=== PATIENT | female | born 1945 | race Caucasian/White ===

== ENCOUNTER 2017-08-20 03:47 | Outpatient (CLI) | payer MEDICARE, OTHER ==
[~2017-08-20 03:47] MED LIST: ALB0.5UD NEB; ASPI-974 PO; CLOP75TA15 PO; FAMO-129 PO; HYDR-565 PO; HYDR12.5 PO; IRBE150T27 PO; LOVA40TA2 PO; SERT25TA PO; TOPI25TA15 PO
== END 2017-08-20 23:59 | disposition home or self-care (01) ==
LOC: DIABETIC 03:47
PROVIDERS: ATTEND Family Medicine
DX: E66.9 Obesity, unspecified (principal); J44.9 Chronic obstructive pulmonary disease, unspecified; I10 Essential (primary) hypertension; Z71.3 Dietary counseling and surveillance
CPT/HCPCS: 97802

== ENCOUNTER 2023-10-14 11:05 | Emergency (ER) | payer BC, MEDICARE ==
[~2023-10-14] VITALS: Ht 154.9 cm; Wt 101.7 kg
[~2023-10-14 11:05] MED LIST changes: +AMLO5TAB4 PO; -FAMO-129 PO; +FLUT1BLS13 INH; -HYDR-565 PO; -HYDR12.5 PO; -IRBE150T27 PO; +IRBE150T34 PO; +KEN0.1O TOP; -LOVA40TA2 PO; +METO50TA17 PO; +ROSU40TA PO; -TOPI25TA15 PO
[2023-10-14 12:19] VITALS: BP 137/56; PULSE 65; TEMP 98.4; O2SAT 97
[2023-10-14 13:41] VITALS: RESP 16
[2023-10-14 13:47] LABS: BASOPHILS % (AUTO) 0.3 % (0-1); EOSINOPHILS # (AUTO) 0.3 X10'3 (0-0.9); EOSINOPHILS % (AUTO) 3.1 % (0-6); HEMATOCRIT 41.1 % (35.0-45.0); HEMOGLOBIN 13.5 g/dl (12.0-16.0); LYMPHOCYTES % (AUTO) 11.2 % (21-51); MEAN CORPUSCULAR HEMOGLOBIN 28.7 PG (27.0-31.0); MEAN CORPUSCULAR HGB CONC 32.8 g/dL (33.0-36.5); MEAN CORPUSCULAR VOLUME 87.6 FL (78-98); MEAN PLATELET VOLUME 9.5 FL (7.4-10.4); MONOCYTES # (AUTO) 0.4 X10'3 (0-0.9); MONOCYTES % (AUTO) 4.4 % (2-12); NEUTROPHILS # (AUTO) 7.1 X10'3 (1.8-7.7); PLATELET COUNT 161 X10'3 (140-440); RED BLOOD COUNT 4.69 X10'6 (4.20-5.60); RED CELL DISTRIBUTION WIDTH 14.7 % (11.5-14.5); WHITE BLOOD COUNT 8.7 X10'3 (4.5-11.0)
[2023-10-14 13:52] LABS: ALBUMIN 3.5 G/DL (3.4-5.0); ANION GAP 10 (8-16); BLOOD UREA NITROGEN 31 MG/DL (7-18); BUN/CREATININE RATIO 23.5 (10.0-20.0); CHLORIDE 105 MMOL/L (99-107); CREATININE 1.32 MG/DL (0.40-0.90); GLUCOSE 90 MG/DL (70-104); POTASSIUM 4.6 MMOL/L (3.5-5.1); SODIUM 141 MMOL/L (135-145); TOTAL CARBON DIOXIDE 26.4 MMOL/L (24-32); eCRCL 26 ML/MIN; eGFR 39 ML/MIN
[2023-10-14 13:55] LABS: BILIRUBIN,URINE NEGATIVE (Neg); CLARITY,URINE SLIGHTLY CLOUDY (Clear); COLOR,URINE YELLOW (Yellow); GLUCOSE, URINE NEGATIVE (Neg); KETONES,URINE NEGATIVE (Neg); LEUKOCYTE ESTERASE ,URINE TRACE (Neg); NITRITES, URINE NEGATIVE (Neg); OCCULT BLOOD,URINE NEGATIVE (Neg); PH,URINE 5.5 (4.8-8.0); PROTEIN,URINE NEGATIVE (Neg); UROBILINOGEN,URINE 0.2 E.U/dL (0.2-1.0)
[2023-10-14 13:57] LABS: UA COLLECTION TYPE CLN CATCH MIDSTREAM
[2023-10-14 14:06] LABS: SQUAMOUS EPITHELIAL CELL,UR MANY /LPF (FEW)
[2023-10-14 14:08] LABS: BACTERIA,URINE FEW /HPF (Neg); RBC,URINE 0-2 /HPF (0-2)
[2023-10-14] MEDS ORDERED: iohexol 300mg/ml 100ml inj. ONE (15:33)
[2023-10-14] MEDS: piperacillin/tazo 4.5gm/100ml 100 ML IV ONE (16:54)
[2023-10-14] MEDS ORDERED: CLIN-214 PO (17:43)
== END 2023-10-14 18:22 | disposition home or self-care (01) ==
LOC: ER 11:06
DX: L03.115 Cellulitis of right lower limb (principal); I10 Essential (primary) hypertension; J45.909 Unspecified asthma, uncomplicated; K21.9 Gastro-esophageal reflux disease without esophagitis; Z98.890 Other specified postprocedural states; Z79.899 Other long term (current) drug therapy; Z79.51 Long term (current) use of inhaled steroids; Z79.82 Long term (current) use of aspirin
CPT/HCPCS: 36415; 73701; 80048; 81001; 83605; 84145; 85025; 87040; 93971; 96365; 99285; J2543; Q9967

== ENCOUNTER 2025-04-17 11:36 | Emergency (ER) | payer MEDICARE, OTHER ==
[~2025-04-17] VITALS: Ht 152.4 cm; Wt 94.3 kg
[~2025-04-17 11:36] MED LIST changes: +CLIN-214 PO
--- NOTE | 2025-04-17 11:50 | Physician Documentation ---
History of Present Illness ~ Chief Complaint: Cold, cough & congestion Stated Complaint: FLU SYMPTOMS Time Seen by MD: 13:09 Source: patient Mode of Arrival: POV Exam Limitations: no limitations HPI 79-year-old female with complaints of cold cough congestion recently finished a prescription of Zithromax on the . Continued cough Medication Reconciliation Allergies: Coded Allergies: No Known Allergies (Unverified , 04/17/25) Scheduled Amlodipine Besylate (Norvasc), 1 TAB PO DAILY, (Reported) Aspirin (Aspirin), 1 TAB PO DAILY, (Reported) Clindamycin HCl (Clindamycin HCl CAPSULE), 2 CAP PO QID Clopidogrel Bisulfate (Plavix), 75 MG PO DAILY, (Reported) Fluticasone Propion/Salmeterol (Fluticasone-Salmeterol 250-50), 1 PUFF INH BID, (Reported) Irbesartan (Irbesartan), 1 TAB PO DAILY, (Reported) Metoprolol Tartrate* (Metoprolol Tartrate*), 1 TAB PO Q12H, (Reported) Rosuvastatin Calcium* (Crestor*), 1 TAB PO DAILY, (Reported) Sertraline Hcl* (Zoloft*), 2 TAB PO DAILY, (Reported) Triamcinolone Acetonide 0.1% Crm* (Kenalog 0.1% Crm*), 1 APPLIC TOP BID, (Reported) Scheduled PRN Albuterol Sulfate* (Proventil Neb*), 2.5 MG NEB Q4H PRN for SOB or wheezing, (Reported) Past Medical History Past Medical History: Hypertension, Asthma, GERD Past Surgical History: orthopedic surgeries Patient History: (COPD) Chronic obstructive lung disease FATHER (78 copd) Alcohol Use: None Drug Use: none Lives In: Home Review of Systems All Other Systems at this time: Reviewed and Negative Respiratory: Reports: see HPI Physical Exam Vital Signs: RN Vital Signs have been reviewed: Yes, Temperature: 97.7, Source: Oral, Heart Rate: 50, Respiratory Rate: 20, BP: 139/56, Pulse Oximetry: 98, Weight: 94.300 Oxygen Flow Rate: 0 Physical Exam General: Alert, no apparent distress. HEENT: moist mucous membranes. Neck: Full range of motion. Respiratory: No respiratory distress speaking in full sentences dry cough lung sounds clear otherwise Chest: No accessory muscle use. Cardiovascular: Appears well perfused Neurologic: Oriented x4. Psychiatric: Normal mood and affect. Skin: Normal color, warm and dry. No edema, no ecchymosis. Progress Results/Orders Results/Orders Orders - KEMI DE PATIENT FINANCIAL REP Chest,Single View (04/17/25 12:01) Completed Orders - KEMI DE PATIENT FINANCIAL REP Chest,Single View (04/17/25 12:01) Vital Signs 04/17/25 11:40 Temp 97.7 Pulse 50 Resp 20 B/P (MAP) 139/56 Pulse Ox 98 O2 Flow Rate 0 EKG/XRAY/CT/US/VASC/MRI Chest X-Ray : Additional Comments CHEST RADIOGRAPH INDICATION: CP TECHNIQUE: Single frontal view of the chest was obtained COMPARISON: CHEST,SINGLE VIEW on DOS: 04/28/20, CHEST,SINGLE VIEW on DOS: 04/27/20, CHEST,SINGLE VIEW on DOS: 04/26/20, CHEST,SINGLE VIEW on DOS: 04/25/20, CHEST,SINGLE VIEW on DOS: 04/24/20 FINDINGS: Lines and Tubes: None Lungs: Clear Pleura: No effusion. No pneumothorax. Cardiomediastinal contours: Unremarkable Bones: Unremarkable IMPRESSION: 1. No acute disease. Medical Decision Making Additional information obtaine: N/A Findings Already completed a dose of antibiotics but still has a dry tight cough. X-ray was unremarkable for any significant findings no infiltrates. We will provide supportive care with antitussives to follow up with primary care Differential Dx:Considerations: Include: Influenza, Pneumonia, URI Departure Time of Disposition: 13:20 Disposition: 01 HOME / SELF CARE / HOMELESS Impression: Primary Impression: Cough Condition: Stable Discharge Instructions: Cough, Adult Additional Instructions: Medication as prescribed follow up with primary care feel free to return to the ER for any new or worsening symptoms Referrals: NO PRIMARY CARE PROVIDER (PCP) Prescriptions Guaifenesin/Codeine Phos (Guaifenesin Ac Cough Syrup) 10 Mg-100 Mg/5 Ml Syrup 5 ML PO Q4HPRN PRN for cough and congestion for 8 Days, #240 ML Prov: KEMI DE PATIENT FINANCIAL REP 04/17/25 Education Educated: Patient Educated regarding: diagnosis, treatment, need for follow up Signature Scribe Signature: No scribe Attestation: The note accurately reflects work and decisions made by me.Kemi DOLAN 04/17/25 13:23 KEMI DE NP Apr 17, 2025 11:50
--- NOTE | 2025-04-17 12:33 | RADIOLOGY REPORT ---
CHEST RADIOGRAPH INDICATION: CP TECHNIQUE: Single frontal view of the chest was obtained COMPARISON: CHEST,SINGLE VIEW on DOS: 04/28/20, CHEST,SINGLE VIEW on DOS: 04/27/20, CHEST,SINGLE VIEW on DOS: 04/26/20, CHEST,SINGLE VIEW on DOS: 04/25/20, CHEST,SINGLE VIEW on DOS: 04/24/20 FINDINGS: Lines and Tubes: None Lungs: Clear Pleura: No effusion. No pneumothorax. Cardiomediastinal contours: Unremarkable Bones: Unremarkable IMPRESSION: 1. No acute disease.
[2025-04-17] MEDS ORDERED: GUAI-647 PO (13:22)
[2025-04-17 13:44] VITALS: BP 173/53; PULSE 50; RESP 16; TEMP 97.7; O2SAT 98
== END 2025-04-17 13:44 | disposition home or self-care (01) ==
LOC: ER 11:36
DX: R05.9 Cough, unspecified (principal); I10 Essential (primary) hypertension; K21.9 Gastro-esophageal reflux disease without esophagitis; J44.9 Chronic obstructive pulmonary disease, unspecified; Z79.82 Long term (current) use of aspirin; Z79.899 Other long term (current) drug therapy; Z98.890 Other specified postprocedural states
CPT/HCPCS: 71045; 99283